=== PATIENT | male | born 1960 | race Caucasian/White ===

== ENCOUNTER 2016-09-09 00:17 | Observation (INO) | payer OTHER ==
--- NOTE | ~2016-09-09 | HP ---
History And Physical [id number] [place]. [address] NAME: VOLODYMYR BILLINGS : 64 STATUS : ADM Maye PAT#: [id number] AGE: 55 ADM/REG DATE : 09/09/16 MR#: [id number] REPORT SERV DATE: 09/09/16 DICTATED BY: ERICA SALAS DATE: 09/09/16 REPORT STATUS : Draft TRANSCRIBED BY: MODJesús DATE: 09/09/16 DATE OF ADMISSION: 09/09/2016 CHIEF COMPLAINT: Persistent atypical chest pain. HISTORY OF PRESENT ILLNESS: A very pleasant 55-year-old white gentleman with no known history of CAD, states that he has experienced episodic chest discomfort over the past few months. 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 He describes it as a heaviness and a burning that radiates up toward his throat. He reports some associated shortness of breath. Denies any nausea, diaphoresis, dizziness, or belching. At its most intense, he rates the chest pain an 8/10. At the time of interview in the short-stay, he rates it a 5/10. He states it lasted approximately 45 minutes in duration, but persisted which was concerning. There is no reported pattern. There is no clear exertional component. The patient denies any personal history of myocardial infarction, stroke, DVT, or pulmonary embolus. The patient denies any recent fever or chills. Rare palpitations. Consumes one to two cans of coke per day and an energy drink. No syncopal episodes. Denies PND or orthopnea. PAST MEDICAL HISTORY: 1. Denies hypertension, dyslipidemia, or diabetes. 2. Remote minimal tobacco use. PAST SURGICAL HISTORY: None. SOCIAL HISTORY: He is . He has one stepdaughter. 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 He does not have a structured exercise routine, but is active throughout his workday. Quit smoking 15 years ago. Did not smoke to excess. Denies alcohol or illicits. FAMILY HISTORY: Father with a heart attack at 72. Remains alive at the age of 78. REVIEW OF SYSTEMS: A 14-point review of systems was performed, significant for the HPI. No other contributory diagnoses identified. ALLERGIES: CODEINE, GI UPSET. MEDICATIONS: Home medicines; Motrin p.r.n. and Turmeric. PHYSICAL EXAMINATION: BLOOD PRESSURE: 129/74, PULSE: 58, RESPIRATORY RATE: 12, TEMPERATURE: 98.0, O2 saturation 97% on room air. HEIGHT: 5 feet 9 inches. WEIGHT: 166 pounds. BMI of 24.5. GENERAL: Cooperative, in no apparent distress. HEENT: Pupils 2 mm, sclera nonicteric. Nares patent. Moist mucous membranes. No xanthelasma. History And Physical [address] [address] NAME: VOLODYMYR BILLINGS : 64 STATUS : ADM Maye PAT#: [id number] AGE: 55 ADM/REG DATE : 09/09/16 MR#: [id number] REPORT SERV DATE: 09/09/16 DICTATED BY: ERICA SALAS DATE: 09/09/16 REPORT STATUS : Draft TRANSCRIBED BY: BERNARDO DATE: 09/09/16 NECK: Trachea midline, no thyromegaly. No JVD. No bruits. LYMPH: No cervical lymphadenopathy. No supraclavicular lymphadenopathy. RESPIRATORY: Unlabored respirations. Breath sounds clear bilaterally to posterior auscultation. No wheezes or rhonchi. CARDIOVASCULAR: Regular rate. No murmur, rub or gallop appreciated. EXTREMITIES: Without edema. Pulses 2+ bilaterally. ABDOMEN: Soft, nontender, nondistended, normal bowel sounds auscultated throughout. No organomegaly. SKIN: Warm, dry extremities. No pallor, or cyanosis. PSYCHIATRIC: Appropriate affect. Alert, oriented x3. LABORATORY DATA: Troponin is less than 0.02 twice. Potassium 4.1, BUN 12, creatinine 0.98, glucose 121, and magnesium 2.1. WBC of 10.9, hemoglobin 13.8, hematocrit 38.4, and platelet count 325,000. EKG: Sinus bradycardia. ASSESSMENT AND PLAN: 1. Atypical chest pain in a patient with no identified risk factors. The patient has been observed with serial enzymes and serial EKGs and held n.p.o. We will proceed with exercise treadmill today for risk stratification. The patient will be discharged home if low risk, negative study to follow up with his PCP in one to two weeks. If anything suggestive of ischemia, Cardiology referral will be initiated. 2. Question gastroesophageal reflux disease component. Mylanta 30 mL p.o. now. 3. Use of energy drinks, counseled regarding cessation and conversion to water for hydration. JERONIMO/JOSÉ MIGUELL Erica Salas MSN, [employer] D[employer]Y MANAGER-[employer] / [id number] CC: Erica Salas MSN, [employer] DUTY MANAGER-[employer] Pedro Pablo Wyatt M.D.
[2016-09-09 00:42] LABS: BASOPHILS 0.4 %; BASOPHILS ABSOLUTE 0.04 10/3/uL (0.0-0.16); EOSINOPHILS 1.9 %; EOSINOPHILS ABSOLUTE 0.21 10/3/uL (0.0-0.53); HEMATOCRIT 38.4 % (40.0-51.0); HEMOGLOBIN 13.8 g/dL (13.6-17.8); IMMATURE GRANULOCYTES 0.2 %; IMMATURE GRANULOCYTES ABSOLUTE 0.02 10/3/uL (0.0-0.11); LYMPHOCYTES 17.4 %; LYMPHOCYTES ABSOLUTE 1.89 10/3/uL (0.67-4.30); MEAN CORPUS HGB CONC 35.9 g/dL (32.0-36.0); MEAN CORPUSCULAR VOLUME 86.3 fL (80-100); MEAN PLATELET VOLUME 10.2 fL (9.2-13.0); MONOCYTES 8.3 %; NEUTROPHILS 71.8 %; NEUTROPHILS ABSOLUTE 7.82 10/3/uL (2.02-8.40); PLATELET COUNT 325 10/3/uL (150-400); RBC DISTRIBUTION WIDTH 12.6 % (12.0-16.0); RED CELL COUNT 4.45 10/6/uL (4.7-6.1); WHITE BLOOD CELLS 10.9 10/3/uL (4.5-10.5)
[2016-09-09 00:44] LABS: ER CBC TAT 0 Hrs 03 MinsNP; MANUAL DIFF NO %
[2016-09-09 00:49] LABS: PARTIAL THROMBO TIME 27.8 SEC (22.5-37.2)
[2016-09-09 00:50] LABS: INTERNATIONAL NORMAL RATI 1.1 UNITS (-)
[2016-09-09 00:59] LABS: BUN (BLOOD UREA NITROGEN) 12 MG/DL (6-23); CALCIUM, SERUM 8.5 MG/DL (8.5-10.4); CHEST PAIN PROFILE TAT 0 Hrs 20 Mins; CHLORIDE, SERUM 104 MMOL/L (96-112); CO2 (CARBON DIOXIDE) 28 MMOL/L (24-34); CREATININE 0.98 MG/DL (0.70-1.30); GFR AFRICAN AMERICAN 102 ML/MIN (>=60); GFR NON AFRICAN AMERICAN 88 ML/MIN (>=60); GLUCOSE, SERUM 121 MG/DL (60-99); POTASSIUM, SERUM 4.1 MMOL/L (3.5-5.3); SODIUM, SERUM 141 MMOL/L (135-148); TROPONIN I <0.02 NG/ML (<0.05)
[2016-09-09] MEDS ORDERED: IBU600 PO (01:59)
[2016-09-09] MEDS ORDERED: TUMERIC OTC PO ×2 (02:00)
== END 2016-09-09 10:54 | disposition home or self-care (01) ==
LOC: ER 00:17 → SSU1 01:39
PROVIDERS: Emergency Medicine
DX: R07.89 Other chest pain (principal); Z87.891 Personal history of nicotine dependence; Z88.5 Allergy status to narcotic agent; Z79.899 Other long term (current) drug therapy
CPT/HCPCS: 71010; 80048; 83735; 84484; 85025; 85610; 85730; 93005; 93017; 99285; A9270-GY; G0378